=== PATIENT | male | born 1990 | race Caucasian/White ===

== ENCOUNTER 2018-07-03 18:49 | Emergency (ER) | payer SELFPAY ==
[2018-07-03 18:53] VITALS: BP 138/92; TEMP 98
[2018-07-03 20:02] VITALS: PULSE 52
== END 2018-07-03 20:03 | disposition home or self-care (01) ==
LOC: COL.ER 18:49
DX: S60.222A Contusion of left hand, initial encounter (principal); S50.12XA Contusion of left forearm, initial encounter; W23.0XXA Caught, crushed, jammed, or pinched between moving objects, initial encounter; Y92.89 Other specified places as the place of occurrence of the external cause